=== PATIENT | female | born 1935 | race African-American/Black ===

== ENCOUNTER 2017-07-21 05:04 | Emergency (ER) | payer OTHER ==
--- NOTE | 2017-07-21 05:57 | RAD ---
Procedure: XR ABDOMEN 2 VIEWS SUPINE ERECT Exam Date: 07/21/2017 Ordering Provider: Eleno Beckman Clinical Indication: ams after gtube replacement Comparison: None Findings: Tracheostomy tube and left subclavian pacer noted. Pacer pads present. G-tube noted. Cardiomediastinal silhouette is unremarkable. Right basilar atelectasis and/or infiltrate. No large pleural effusions or pneumothorax. Aortic calcification. Contrast seen within the bowel to the level of the rectum. Nonobstructive bowel gas pattern. There is no definite pneumoperitoneum. There are no suspicious calcifications. There is no acute skeletal abnormality. Impression: 1. Right basilar atelectasis and/or infiltrate. Electronically signed by: Darian Angeles MD 07/21/2017 5:56 AM CDT
--- NOTE | 2017-07-21 05:58 | ED.PDOC ---
History of Present Illness - General Source: EMS notes reviewed, residential records Exam Limitations: clinical condition - History of Present Illness Initial Comments: the patient is an 82-year-old female at the long-term care ventilator facility. EMS was called secondary to a pulseless patient. Apparently the patient had been acting out and had pulled out her G-tube. As they were trying to get him back in she apparently went limp and unresponsive and they were unable to find a pulse. By the time he got an AED in place her pulse had returned. She however did not become responsive. She had previously been able to sit up on the bed and of course remove her G-tube. Upon arrival here in the emergency room she has limp and not moving any of her extremities even to pain. There is no focusing her eyes. She has no significant gag reflex. There is no posturing. There is no evidence of pain. There is no evidence of any attempt to communicate. She is not even trying to breathe on her own. Past medical history obtained from outside records indicates dysphonia and vocal cord dysfunction along with severe pulmonary hypertension COPD and pulmonary fibrosis all of which led to severe hypercapnia with a PaCO2 of 189 at one time. The patient also has a history of hypertension and CHF of course related to pulmonary hypertension, coronary artery disease, pacemaker placement , GERD, glaucoma, asthma, hypercholesterolemia, previous small myocardial infarction, pneumonia, hypernatremia, decubitus ulcer and steroid dependency. additionally according to outside records, the patient has a history of pulling out her G-tube and any other assistive devices. After approximately 30 or 40 minutes the patient has started moving her lips but not purposefully. She is also flexing her upper extremities somewhat at the elbows. Still no movement from the lower extremities. She is still not really withdrawing from pain. Timing/Duration: 1/2 hour Severity: severe Improving Factors: nothing Worsening Factors: nothing <Eleno Beckman - Last Filed: 07/21/17 06:42> <Romy Burger - Last Filed: 07/21/17 10:44> - General Chief Complaint: Unresponsive Stated Complaint: unresponsive Time Seen by Provider: 07/21/17 05:05 - History of Present Illness Allergies/Adverse Reactions: Allergies Codeine Allergy (Verified 07/21/17 05:44) Levofloxacin [From Levaquin] Allergy (Verified 07/21/17 05:44) Sulfanilamide Allergy (Verified 07/21/17 05:44) Review of Systems - Review of Systems Review of Systems: 07/21/17 05:58 the patient is unable to give a review of systems. <Eleno Beckman - Last Filed: 07/21/17 06:42> Past Medical History (General) - Patient Medical History Hx of COPD: Yes Hx Cardiac Disorders: Yes - [place] Hx Congestive Heart Failure: Yes Hx Hypertension: Yes Hx Gastroesophageal Reflux: Yes Surgical History: other - Vaccination History Hx Tetanus, Diphtheria Vaccination: No Hx Pneumococcal Vaccination: Yes - Social History Hx Tobacco Use: No - Activities of Daily Living Alf/Assisted Living (if applicable):: [facility] - Female History Patient is a Female of Child Bearing Age (10 -59 yrs old): No Patient : No <Eleno Beckman - Last Filed: 07/21/17 06:42> Family Medical History - Family History Mother Family History: Unknown Living Status: Unknown <Eleno Beckman - Last Filed: 07/21/17 06:42> Physical Exam - Physical Exam General Appearance: Other - the patient is frail and unresponsive Eye Exam: bilateral other - pupils are minimally reactive bilaterally. She is not tracking anything in her visual camacho. Ears, Nose, Throat: normal ENT inspection - mucous membranes are dry. Neck: other - tracheostomy is in place. Passive range of motion of the neck appears to be grossly within normal limits. I feel no crepitus or deformity or evidence of any trauma. Respiratory: lungs clear, normal breath sounds, other - the patient is not even attempting to breathe on her own Cardiovascular/Chest: normal peripheral pulses, regular rate, rhythm, no edema Peripheral Pulses: radial,right: 2+, radial,left: 2+, dorsalis pedis,right: 2+, dorsalis pedis,left: 2+ Gastrointestinal/Abdominal: soft, other - G-tube is in place Extremity: normal range of motion - passively. See history of present illness, normal inspection, no pedal edema, normal capillary refill Neurologic: other - the patient is unresponsive at this time. She has shown some spontaneous but not purposeful movement. Skin Exam: pallor Comments: Vital Signs - 24 hr 07/21/17 05:18 Temperature 94.2 F L Pulse Rate [ 56 L left] Respiratory 16 Rate Blood Pressure 135/80 [right] O2 Sat by Pulse 100 Oximetry <Eleno Beckman L - Last Filed: 07/21/17 06:42> Progress - Progress Progress: 07/21/17 06:44 additional workup is pending. Patient will be handed over to Dr. Burger for continuation of care. - Results/Orders Results/Orders: 07/21/17 05:05 Telemetry .CONTINUOUS 07/21/17 05:06 Head [CT] Stat UA [URINALYSIS] Stat 07/21/17 05:07 EKG Assessment ONCE Oxygen Delivery Assessment: QSHIFT 07/21/17 05:15 EKG STAT 07/21/17 09:00 Oxygen Daily Laboratory Results - last 24 hr 07/21/17 07/21/17 07/21/17 04:50 04:50 04:50 WBC 9.4 RBC 3.79 L Hgb 11.6 L Hct 36.4 MCV 95.9 MCH 30.6 MCHC 31.9 L RDW 16.2 H Plt Count 186 MPV 7.6 Absolute Neuts (auto) Not Reportable Absolute Lymphs (auto) Not Reportable Absolute Monos (auto) Not Reportable Absolute Eos (auto) Not Reportable Neutrophils % Not Reportable Neutrophils % (Manual) 62.0 Lymphocytes % Not Reportable Lymphocytes % (Manual) 34.0 Monocytes % Not Reportable Monocytes % (Manual) 4.0 Eosinophils % Not Reportable Basophils % Not Reportable Toxic Granulation 1+ Platelet Estimate Normal Anisocytosis 1+ Ovalocytes 1+ PT 13.1 H INR 1.160 PTT (SP) 34.2 D-Dimer, Quantitative 721 H* Sodium 137 Potassium 3.8 Chloride 99 L Carbon Dioxide 27 Anion Gap 14.8 BUN 25 H Creatinine 0.74 BUN/Creatinine Ratio 33.8 H POC Glucose Random Glucose 210 H Serum Osmolality 284.4 Calcium 10.9 H Magnesium 2.2 Total Bilirubin 0.5 AST 50 H ALT 37 Alkaline Phosphatase 76 Creatine Kinase 56 CK-MB (CK-2) 2.9 CK-MB (CK-2) % Not Reportable Troponin I 0.07 H* B-Natriuretic Peptide 1110.0 H* Serum Total Protein 6.5 Albumin 3.2 Globulin 3.3 Albumin/Globulin Ratio 1.0 L 07/21/17 05:08 WBC RBC Hgb Hct MCV MCH MCHC RDW Plt Count MPV Absolute Neuts (auto) Absolute Lymphs (auto) Absolute Monos (auto) Absolute Eos (auto) Neutrophils % Neutrophils % (Manual) Lymphocytes % Lymphocytes % (Manual) Monocytes % Monocytes % (Manual) Eosinophils % Basophils % Toxic Granulation Platelet Estimate Anisocytosis Ovalocytes PT INR PTT (SP) D-Dimer, Quantitative Sodium Potassium Chloride Carbon Dioxide Anion Gap BUN Creatinine BUN/Creatinine Ratio POC Glucose 142 H Random Glucose Serum Osmolality Calcium Magnesium Total Bilirubin AST ALT Alkaline Phosphatase Creatine Kinase CK-MB (CK-2) CK-MB (CK-2) % Troponin I B-Natriuretic Peptide Serum Total Protein Albumin Globulin Albumin/Globulin Ratio EKG shows a ventricularly paced rhythm. Difficult to tell if there are any acute changes due to this and no previous EKG for comparison. It is a normal rate. Chest x-ray showsSignificant pulmonary fibrosis. Again I have no previous x- ray to compare to.formal read shows possible right lower lobe basilar atelectasis versus infiltrate. head CT shows no evidence of hemorrhage or midline shift. No evidence of acute stroke. There are apparently prominent optic nerve sheaths. There is possible left mastoiditis uncertain whether old or new. current ABG shows a PaCO2 of 50 and a PaO2 of 75. This is on 40% FiO2. PH is 7.43. Bicarbonate is 32. <Eleno Beckman L - Last Filed: 07/21/17 06:42> - Progress Progress: 07/21/17 09:19 Patient remains minimally responsive. No purposeful movement. Second Troponin is further elevated @ 0.12. Will transfer to [facility] per family request. - Results/Orders Results/Orders: Laboratory Last Values WBC 9.4 K/mm3 (4.8-10.8) 07/21/17 04:50 RBC 3.79 M/mm3 (4.20-5.40) L 07/21/17 04:50 Hgb 11.6 gm/dL (12.0-16.0) L 07/21/17 04:50 Hct 36.4 % (36.0-47.0) 07/21/17 04:50 MCV 95.9 fl (81.0-99.0) 07/21/17 04:50 MCH 30.6 pg (27.0-31.0) 07/21/17 04:50 MCHC 31.9 g/dL (33.0-37.0) L 07/21/17 04:50 RDW 16.2 % (11.5-14.5) H 07/21/17 04:50 Plt Count 186 K/mm3 (130-400) 07/21/17 04:50 MPV 7.6 fl (7.40-10.4) 07/21/17 04:50 Absolute Neuts (auto) Not Reportable 07/21/17 04:50 Absolute Lymphs (auto) Not Reportable 07/21/17 04:50 Absolute Monos (auto) Not Reportable 07/21/17 04:50 Absolute Eos (auto) Not Reportable 07/21/17 04:50 Neutrophils % Not Reportable 07/21/17 04:50 Neutrophils % (Manual) 62.0 % 07/21/17 04:50 Lymphocytes % Not Reportable 07/21/17 04:50 Lymphocytes % (Manual) 34.0 % 07/21/17 04:50 Monocytes % Not Reportable 07/21/17 04:50 Monocytes % (Manual) 4.0 % 07/21/17 04:50 Eosinophils % Not Reportable 07/21/17 04:50 Basophils % Not Reportable 07/21/17 04:50 Toxic Granulation 1+ 07/21/17 04:50 Platelet Estimate Normal (NORMAL) 07/21/17 04:50 Anisocytosis 1+ 07/21/17 04:50 Ovalocytes 1+ 07/21/17 04:50 PT 13.1 SECONDS (9.4-12.5) H 07/21/17 04:50 INR 1.160 07/21/17 04:50 PTT (SP) 34.2 SECONDS (25.1-36.5) 07/21/17 04:50 D-Dimer, Quantitative 721 ng/mL (0-230) H* 07/21/17 04:50 Sodium 137 mmol/L (135-145) 07/21/17 04:50 Potassium 3.8 mmol/L (3.6-5.0) 07/21/17 04:50 Chloride 99 mmol/L (101-111) L 07/21/17 04:50 Carbon Dioxide 27 mmol/L (21-31) 07/21/17 04:50 Anion Gap 14.8 (12-18) 07/21/17 04:50 BUN 25 mg/dL (7-18) H 07/21/17 04:50 Creatinine 0.74 mg/dL (0.6-1.3) 07/21/17 04:50 BUN/Creatinine Ratio 33.8 (10-20) H 07/21/17 04:50 POC Glucose 142 mg/dL (70-105) H 07/21/17 05:08 Random Glucose 210 mg/dL (70-105) H 07/21/17 04:50 Serum Osmolality 284.4 mOsm/L (275-295) 07/21/17 04:50 Calcium 10.9 mg/dL (8.4-10.2) H 07/21/17 04:50 Magnesium 2.2 mg/dL (1.8-2.5) 07/21/17 04:50 Total Bilirubin 0.5 mg/dL (0.2-1.0) 07/21/17 04:50 AST 50 IU/L (10-42) H 07/21/17 04:50 ALT 37 IU/L (10-60) 07/21/17 04:50 Alkaline Phosphatase 76 IU/L (42-121) 07/21/17 04:50 Creatine Kinase 79 IU/L (26-140) 07/21/17 08:22 CK-MB (CK-2) 4.7 ng/mL (0.0-4.4) H* D 07/21/17 08:22 CK-MB (CK-2) % Not Reportable 07/21/17 08:22 Troponin I 0.12 ng/mL (0.01-0.05) H* 07/21/17 08:22 B-Natriuretic Peptide 1110.0 pg/ml (0-100) H* 07/21/17 04:50 Serum Total Protein 6.5 gm/dL (6.4-8.2) 07/21/17 04:50 Albumin 3.2 g/dl (3.2-5.5) 07/21/17 04:50 Globulin 3.3 gm/dL (2.3-3.5) 07/21/17 04:50 Albumin/Globulin Ratio 1.0 (1.1-1.9) L 07/21/17 04:50 Urine Color Yellow (Yellow) 07/21/17 07:57 Urine Appearance Cloudy (Clear) 07/21/17 07:57 Urine pH 7.0 (4.5-7.8) 07/21/17 07:57 Ur Specific [place] 1.025 (1.005-1.030) 07/21/17 07:57 Urine Protein >=300 mg/dL H 07/21/17 07:57 Urine Glucose (UA) Negative mg/dL (Negative) 07/21/17 07:57 Urine Ketones Negative mg/dL (NEGATIVE) 07/21/17 07:57 Urine Blood Small (Negative) H 07/21/17 07:57 Urine Nitrite Positive H 07/21/17 07:57 Urine Bilirubin Negative (NEGATIVE) 07/21/17 07:57 Urine Urobilinogen 1.0 mg/dL (0.2-1.0) 07/21/17 07:57 Ur Leukocyte Esterase Negative (Negative) 07/21/17 07:57 Urine RBC 5-10 /hpf H 07/21/17 07:57 Urine WBC 3-5 /hpf H 07/21/17 07:57 Ur Epithelial Cells 0 /hpf 07/21/17 07:57 Urine Bacteria 2+ H 07/21/17 07:57 <Romy Burger - Last Filed: 07/21/17 10:44> Departure <Eleno Bekcman - Last Filed: 07/21/17 06:42> - Departure Time of Disposition: 10:44 <Romy Burger - Last Filed: 07/21/17 10:44> - Departure Clinical Impression: Elevated troponin, Ventilator dependence Altered mental status Qualifiers: Altered mental status type: unspecified Qualified Code(s): R41.82 - Altered mental status, unspecified Urinary tract infection Qualifiers: Urinary tract infection type: site unspecified Hematuria presence: without hematuria Qualified Code(s): N39.0 - Urinary tract infection, site not specified Disposition: Transfer to Hospital Condition: Serious Transfer to Outside Facility - Transfer Information Accepting Provider:: Dr. Navarro Accepting Facility: [facility] Reason for Transfer: ICU <Romy Burger - Last Filed: 07/21/17 10:44>
--- NOTE | 2017-07-21 06:13 | CT ---
Procedure: CT HEAD WITHOUT IV CONTRAST Exam Date: 07/21/2017 Ordering Provider: Eleno Beckman Clinical Indication: ams acute onset Comparison: None Technique: Using a helical scanner, sequential axial imaging of the brain was obtained without the administration of intravenous contrast. The exam was obtained from the skull base to vertex. This exam was performed according to our departmental dose optimization program which includes use of automated exposure control, adjustment of the mA and/or kV according to patient size and/or use of iterative reconstruction technique. Findings: Ventricular size and configuration are normal for the patient's age. There is no midline shift or hydrocephalus. There is no acute intracranial hemorrhage or mass effect. There is no acute infarct. Hypodensities in the periventricular and subcortical white matter of both cerebral hemispheres are nonspecific but likely related to chronic ischemic small vessel disease. The calvarium is intact. There is no fracture. There is no lytic or sclerotic lesion. The visualized paranasal sinuses are unremarkable. Complete opacification of the left mastoid air cells. Mastoid air cells on the right are unremarkable. Vascular calcifications. Optic nerve sheaths are prominent bilaterally. This is nonspecific but can sometimes be seen with papilledema and/or malignant hypertension. IMPRESSION: 1.No acute intracranial abnormality demonstrated. 2.Optic nerve sheaths are prominent bilaterally. This is nonspecific but can sometimes be seen with papilledema and/or malignant hypertension. 3.Complete opacification of the left mastoid air cells, question mastoiditis. Electronically signed by: Darian Angeles MD 07/21/2017 6:11 AM CDT
[2017-07-21] MEDS ORDERED: ACETAMINOPHEN SUPPOSITORY 650 MG PR ONE ×2 (15:36)
[2017-07-21 15:56] VITALS: BP 100/58; TEMP 101.6; O2SAT 98
== END 2017-07-21 15:40 | disposition short-term general hospital (02) ==
LOC: ER 05:04
DX: R41.82 Altered mental status, unspecified (principal); N39.0 Urinary tract infection, site not specified; R79.89 Other specified abnormal findings of blood chemistry; Z99.11 Dependence on respirator [ventilator] status; Z93.1 Gastrostomy status; I25.2 Old myocardial infarction; I11.0 Hypertensive heart disease with heart failure; I50.9 Heart failure, unspecified; K21.9 Gastro-esophageal reflux disease without esophagitis; Z88.6 Allergy status to analgesic agent; Z88.2 Allergy status to sulfonamides; Z95.0 Presence of cardiac pacemaker

== ENCOUNTER 2017-10-15 20:22 | Emergency (ER) | payer OTHER ==
[2017-10-15 20:50] VITALS: O2SAT 99
--- NOTE | 2017-10-15 21:17 | RAD ---
EXAM DESCRIPTION: Chest,1 View CLINICAL HISTORY: 82 years Female vent pt COMPARISON: 09/27/2017 FINDINGS: Cardiac enlargement. Widened mediastinum which appears to be on the basis of ectatic vascular structures. Pacemaker in place. Tracheostomy tube is noted. Blunting of the costophrenic angles suggesting small effusions. Atelectasis in the right lung base. Prominent interstitial markings which appears similar to the previous study and is likely reflective of senescent lung. IMPRESSION: Prominence of the interstitial markings which is likely related to senescent lung. Possibility of developing edema is not excluded Right basilar atelectasis Small bilateral pleural effusions may be present Tracheostomy tube in place Electronically signed by: Cherry Alegria 10/15/2017 9:16 PM [employer]PA[employer]
--- NOTE | 2017-10-15 21:53 | ED.PDOC ---
History of Present Illness - General Chief Complaint: Respiratory Problem Stated Complaint: unresponsive at retirement Time Seen by Provider: 10/15/17 21:42 Source: RN notes reviewed - History of Present Illness Initial Comments: THIS IS A PATIENT FROM [facility]. EVIDENTLY SHE WAS FOUND UNRESPONSIVE AND DECIDED TO TRANSFER THE PATIENT TO THE ER. MEDICS SAY THAT WHENEVER THEY PICKED THE PATIENT UP SHE WAS RESPONSIVE. SHE HAS A HX OF COPD, HTN, CHF, CAD, PACEMAKER GERD. SHE HAS A BASELINE PCO2 OF 90 AND HENCE SHE IS VENT DEPENDENT. UPON ARRIVAL TO THE ED THE VITALS HAVE BEEN NORMAL AND SHE HAS BEEN ALERT. Timing/Duration: unsure Severity: mild Allergies/Adverse Reactions: Allergies Codeine Allergy (Verified 07/21/17 05:44) Levofloxacin [From Levaquin] Allergy (Verified 07/21/17 05:44) Sulfanilamide Allergy (Verified 07/21/17 05:44) Review of Systems - Review of Systems Unable to Obtain Due To: intubated Past Medical History (General) - Patient Medical History Hx of COPD: Yes Hx Cardiac Disorders: Yes - [place] Hx Congestive Heart Failure: Yes Hx Pacemaker: Yes Hx Hypertension: Yes Hx Gastroesophageal Reflux: Yes Hx MRSA: Yes Surgical History: pacemaker, Hysterectomy - Vaccination History Hx Tetanus, Diphtheria Vaccination: No Hx Influenza Vaccination: - unk Hx Pneumococcal Vaccination: - unk - Social History Hx Tobacco Use: No - Activities of Daily Living Correction/Assisted Living (if applicable):: [facility] - Female History Patient is a Female of Child Bearing Age (10 -59 yrs old): No Patient : No Family Medical History - Family History Mother Family History: Unknown Living Status: Unknown Physical Exam - Physical Exam General Appearance: Alert Eye Exam: bilateral normal Ears, Nose, Throat: hearing grossly normal, other - THE PATIENT IS INTUBATED Neck: non-tender Respiratory: chest non-tender, lungs clear Cardiovascular/Chest: normal peripheral pulses, regular rate, rhythm, no edema, no gallop, no JVD Peripheral Pulses: radial,right: 2+ Gastrointestinal/Abdominal: normal bowel sounds Rectal Exam: deferred Back Exam: normal inspection Extremity: normal range of motion Skin Exam: normal color Progress - Results/Orders Results/Orders: THE CXR HAS SMALL EFFUSIONS BILATERALLY. WHILE IN TE ED HER VITALS HAVE BEEN NORMAL AND SHE HAS BEEN ALERT ALL THE TIME. Departure - Departure Clinical Impression: End stage COPD Time of Disposition: 21:57 Disposition: Discharge to Home or Self Care Condition: Good Departure Forms: ED Discharge - Pt. Copy, Patient Portal Self Enrollment Instructions: DI for Altered Mental Status
[2017-10-15 22:25] VITALS: BP 106/52; TEMP 95.6
== END 2017-10-15 22:24 | disposition home or self-care (01) ==
LOC: ER 20:22
DX: J44.9 Chronic obstructive pulmonary disease, unspecified (principal); Z99.11 Dependence on respirator [ventilator] status; I25.2 Old myocardial infarction; I11.0 Hypertensive heart disease with heart failure; I50.9 Heart failure, unspecified; Z95.0 Presence of cardiac pacemaker

== ENCOUNTER → 2018-01-09 | Outpatient (CLI) | payer OTHER | LOC: GOCC 11:04 | PROVIDERS: ATTEND Internal Medicine | DX: S81.802A Unspecified open wound, left lower leg, initial encounter (principal) ==

== ENCOUNTER 2018-02-10 02:38 | Emergency (ER) | payer OTHER ==
--- NOTE | 2018-02-10 02:52 | ED.PDOC ---
History of Present Illness - General Chief Complaint: Respiratory Problem Time Seen by Provider: 02/10/18 02:49 Source: RN notes reviewed, EMS notes reviewed Exam Limitations: other - CHRONIC VENT DEPENDANT Additional Information: 83 YEAR OLD CHRONIC VENT DEPENDANT [facility] FOR EVALUATION OF FEVER AND INCREASING RESPIRATORY DISTRESS SHE HAS HISTORY OF COPD CHRONIC VENTILATORY INSUFFICIENCY FEVER NOTED TODAY [facility] CATH URINE IS VERY CLOUDY OXYGEN SAT ABOVE 92 % - History of Present Illness Timing/Duration: unsure Severity: mild Improving Factors: nothing Worsening Factors: nothing Allergies/Adverse Reactions: Allergies Codeine Allergy (Verified 07/21/17 05:44) Levofloxacin [From Levaquin] Allergy (Verified 07/21/17 05:44) Sulfanilamide Allergy (Verified 07/21/17 05:44) Home Medications: Ambulatory Orders Acetaminophen [Tylenol] 325 mg PO 02/10/18 Ascorbic Acid 02/10/18 Balsam [place] Oil [Venelex] 1 applic TOP BID 02/10/18 Brimonidine 0.2% Ophth [Alphagan P] 1 drop BOTH_EYES 02/10/18 Chlorhexidine Gluconate (Mouth [Chlorhexidine Gluconate] 02/10/18 Cranberry-Vitamin C-Inulin [Uti-Stat] 1 liq PO 02/10/18 Docusate Sodium 100 mg PO 02/10/18 Doxycycline Hyclate [Vibramycin] 100 mg PO 02/10/18 Sarah-Tussin Dm 100-10 mg/5Ml 02/10/18 Ipratropium/Albuterol 02/10/18 Lorazepam [Ativan] 02/10/18 Morphine Sulfate 7.5 mg PO 02/10/18 Pantoprazole Suspension [Protonix Suspension] 02/10/18 Prednisone 02/10/18 Quetiapine Fumarate 200 mg 02/10/18 Zinc Sulfate 220 mg PO 02/10/18 Review of Systems - Review of Systems Unable to Obtain Due To: condition, clinical condition Past Medical History (General) - Patient Medical History Hx of COPD: Yes Hx Cardiac Disorders: Yes - [place] Hx Congestive Heart Failure: Yes Hx Pacemaker: Yes Hx Hypertension: Yes Hx Gastroesophageal Reflux: Yes Hx MRSA: Yes - Vaccination History Hx Tetanus, Diphtheria Vaccination: No Hx Influenza Vaccination: - unk Hx Pneumococcal Vaccination: - unk - Social History Hx Tobacco Use: No - Female History Patient : No Family Medical History - Family History Mother Family History: Unknown Living Status: Unknown Physical Exam - Physical Exam General Appearance: Lethargic Eye Exam: bilateral normal Ears, Nose, Throat: normal ENT inspection, normal pharynx Neck: non-tender, full range of motion, supple Respiratory: chest non-tender, lungs clear, normal breath sounds, no accessory muscle use Cardiovascular/Chest: normal peripheral pulses, regular rate, rhythm, no edema, no gallop, no JVD Peripheral Pulses: radial,right: 2+, radial,left: 2+, femoral,right: 2+, femoral ,left: 2+, popliteal,right: 2+, popliteal,left: 2+ Back Exam: normal inspection, no CVA tenderness, no vertebral tenderness Extremity: non-tender, normal inspection Neurologic: other - UNABLE TO EXAM DUE TO MENTAL SATUS Departure - Departure Clinical Impression: Pneumonia, COPD (chronic obstructive pulmonary disease), Urinary tract infection, Anemia Disposition: Transfer to Hospital Departure Forms: ED Discharge - Pt. Copy, Patient Portal Self Enrollment Home Medications: Ambulatory Orders Acetaminophen [Tylenol] 325 mg PO 02/10/18 Ascorbic Acid 02/10/18 Balsam [place] Oil [Venelex] 1 applic TOP BID 02/10/18 Brimonidine 0.2% Ophth [Alphagan P] 1 drop BOTH_EYES 02/10/18 Chlorhexidine Gluconate (Mouth [Chlorhexidine Gluconate] 02/10/18 Cranberry-Vitamin C-Inulin [Uti-Stat] 1 liq PO 02/10/18 Docusate Sodium 100 mg PO 02/10/18 Doxycycline Hyclate [Vibramycin] 100 mg PO 02/10/18 Sarah-Tussin Dm 100-10 mg/5Ml 02/10/18 Ipratropium/Albuterol 02/10/18 Lorazepam [Ativan] 02/10/18 Morphine Sulfate 7.5 mg PO 02/10/18 Pantoprazole Suspension [Protonix Suspension] 02/10/18 Prednisone 02/10/18 Quetiapine Fumarate 200 mg 02/10/18 Zinc Sulfate 220 mg PO 02/10/18 Transfer to Outside Facility - Transfer Information Accepting Provider:: DR YE Accepting Facility: [facility] Reason for Transfer: ICU
[2018-02-10] MEDS ORDERED: ACETAMINOPHEN LIQUID 160 MG/5 ML UD PO ONE (03:30)
--- NOTE | 2018-02-10 04:02 | RAD ---
EXAM DESCRIPTION: Chest,1 View CLINICAL HISTORY: R/O PNEUMONIA COMPARISON: 10/15/2027 FINDINGS: Single frontal view of the chest. Tracheostomy. Cardiomegaly. Left-sided pacemaker. Left upper lobe consolidation. No pneumothorax. No acute osseous abnormalities. Upper abdominal soft tissues are unremarkable. IMPRESSION: 1. Interval development of left upper lung airspace opacity concerning for pneumonia. Likely left pleural effusion. Electronically signed by: Hank Obrien 02/10/2018 4:01 AM CDT
[2018-02-10] MEDS ORDERED: CEFEPIME 1 GM in SODIUM CHLORIDE 0.9% 50ML 50 ML IVPB ONE (05:15)
[2018-02-10] MEDS ORDERED: CEFEPIME 2 GM VIAL IVPB ONE (05:20)
[2018-02-10] MEDS ORDERED: SODIUM CHLORIDE 0.9% 50ML 50 ML ONE (05:20)
[2018-02-10 06:17] VITALS: BP 111/61; TEMP 101.2; O2SAT 100
== END 2018-02-10 06:10 | disposition short-term general hospital (02) ==
LOC: ER 02:38
DX: J18.9 Pneumonia, unspecified organism (principal); J44.9 Chronic obstructive pulmonary disease, unspecified; N39.0 Urinary tract infection, site not specified; D64.9 Anemia, unspecified; I25.2 Old myocardial infarction; I11.0 Hypertensive heart disease with heart failure; I50.9 Heart failure, unspecified; K21.9 Gastro-esophageal reflux disease without esophagitis; Z95.0 Presence of cardiac pacemaker; Z99.11 Dependence on respirator [ventilator] status
CPT/HCPCS: 36415; 71045; 80053; 81001; 85025; 87040; 87086; 94002; A4216; J0692

== ENCOUNTER 2018-02-21 08:30 | Emergency (ER) | payer OTHER ==
--- NOTE | 2018-02-21 08:47 | ED.PDOC ---
History of Present Illness - General Chief Complaint: General Stated Complaint: swelling left upper extremity Time Seen by Provider: 02/21/18 08:46 Source: EMS Exam Limitations: clinical condition, physical impairment, other - non verbal - History of Present Illness Initial Comments: Andie Kay 83 y/o female brought by EMS with left upper extremity swelling for 3-4 days;patient on chronic ventilatory support ,non verbal,awake.recent hospitalization at [facility] for sepsi.pna. Timing/Duration: other - see hpi Severity: moderate Improving Factors: nothing Worsening Factors: nothing Associated Symptoms: other - see hpi Allergies/Adverse Reactions: Allergies Codeine Allergy (Verified 07/21/17 05:44) Levofloxacin [From Levaquin] Allergy (Verified 07/21/17 05:44) Sulfanilamide Allergy (Verified 07/21/17 05:44) Home Medications: Ambulatory Orders Acetaminophen [Tylenol] 650 mg PEG Q4H PRN 02/10/18 Brimonidine 0.2% Ophth [Alphagan P] 1 drop BOTH_EYES BID 02/10/18 RX: Docusate Sodium 100 mg PEG DAILY PRN 02/10/18 RX: Morphine Sulfate 7.5 mg PEG Q6H PRN 02/10/18 RX: Zinc Sulfate 220 mg PEG DAILY 02/10/18 Ascorbic Acid [Vitamin C] 500 mg PEG DAILY 02/21/18 Atropine Sulfate (Ophthalmic) [Atropine Sulfate] 2 - 4 drop SL Q4H PRN 02/21/18 Cholecalciferol [Vitamin D3] 400 unit PEG DAILY 02/21/18 Dextromethorphan-Guaifenesin [Sarah-[place]villessin Dm] 1 syp PEG BID 02/21/18 Ipratropium [place] Nebs [Atrovent NEBS] 0.5 mg INH Q6H 02/21/18 Linezolid [Zyvox] 600 mg PEG BID 02/21/18 Lorazepam [Ativan] 1 mg PEG BID PRN 02/21/18 Multiple Vitamin [Multivitamins] 1 cap PEG DAILY 02/21/18 Pantoprazole Suspension [Protonix] 40 mg PEG DAILY 02/21/18 QUEtiapine FUMARATE [SEROquel] 100 mg PEG BID 02/21/18 RX: Prednisone 10 mg PEG DAILY 02/21/18 Review of Systems - Review of Systems Unable to Obtain Due To: condition, clinical condition, other - non verbal ;on tracheostomy tube-w/chronic ventilatory support Past Medical History (General) - Patient Medical History Hx of COPD: Yes Hx Cardiac Disorders: Yes - [place] Hx Congestive Heart Failure: Yes Hx Pacemaker: Yes Hx Hypertension: Yes Hx Gastroesophageal Reflux: Yes Hx MRSA: Yes - Vaccination History Hx Tetanus, Diphtheria Vaccination: No Hx Influenza Vaccination: - unk Hx Pneumococcal Vaccination: - unk - Social History Hx Tobacco Use: No - Activities of Daily Living Snf/Assisted Living (if applicable):: [facility] - Female History Patient : No Family Medical History - Family History Mother Family History: Unknown Living Status: Unknown Physical Exam - Physical Exam General Appearance: Alert, Comfortable, No apparent distress Eye Exam: bilateral normal Ears, Nose, Throat: normal ENT inspection Neck: supple, normal inspection Respiratory: lungs clear, normal breath sounds, no respiratory distress Cardiovascular/Chest: normal peripheral pulses, regular rate, rhythm, no murmur Peripheral Pulses: radial,right: 1+, radial,left: 1+ Gastrointestinal/Abdominal: non tender, soft, no organomegaly, other - peg tube patent Back Exam: no CVA tenderness, no vertebral tenderness Extremity: swelling - left upper extremity, other - contacture deformity , muscle disuse atrophy mostly LE Neurologic: alert, motor weakness Skin Exam: normal color, warm/dry Progress - Progress Progress: 02/21/18 08:59 Vital Signs - 8 hr 02/21/18 08:47 Temperature 97.3 F L Pulse Rate [ 72 Right Ulnar] Respiratory 18 Rate Blood Pressure 132/64 [Right Arm] O2 Sat by Pulse 100 Oximetry - Results/Orders Results/Orders: Laboratory Tests 02/21/18 02/21/18 09:23 09:23 WBC 9.1 RBC 2.71 L Hgb 7.8 L* Hct 24.5 L MCV 90.2 MCH 28.7 MCHC 31.9 L RDW 17.3 H Plt Count 275 MPV 6.9 L Absolute Neuts (auto) 7.60 H Absolute Lymphs (auto) 0.90 L Absolute Monos (auto) 0.40 Absolute Eos (auto) 0.20 Absolute Basos (auto) 0.10 Neutrophils % 83.6 H Lymphocytes % 9.4 L Monocytes % 4.5 Eosinophils % 1.8 Basophils % 0.7 PT 13.0 H INR 1.120 PTT (SP) 30.5 Sodium 138 Potassium 4.4 Chloride 103 Carbon Dioxide 28 Anion Gap 11.4 L BUN 20 H Creatinine 0.42 L BUN/Creatinine Ratio 47.6 H Random Glucose 108 H Serum Osmolality 278.8 Lactic Acid 2.1 Calcium 10.0 Magnesium 1.8 Total Bilirubin 0.6 Direct Bilirubin 0.1 Indirect Bilirubin 0.5 AST 20 ALT 17 Alkaline Phosphatase 48 Creatine Kinase 17 L CK-MB (CK-2) 1.1 CK-MB (CK-2) % Not Reportable Troponin I 0.03 B-Natriuretic Peptide 389.0 H* Serum Total Protein 6.2 L Albumin 2.7 L Hgb-7.9 on discharge at [facility]-steady - EKG/XRAY/CT XRAY: chest - diminishing left upper lobe infiltrates Xray Comments: [id number] DVT left subclavian veins Departure - Departure Clinical Impression: Swelling of left upper extremity, Ventilator dependent, Anemia of chronic illness Time of Disposition: 10:49 Disposition: Discharge to SNF Condition: Fair Departure Forms: ED Discharge - Pt. Copy, Patient Portal Self Enrollment Home Medications: Ambulatory Orders Acetaminophen [Tylenol] 650 mg PEG Q4H PRN 02/10/18 Brimonidine 0.2% Ophth [Alphagan P] 1 drop BOTH_EYES BID 02/10/18 RX: Docusate Sodium 100 mg PEG DAILY PRN 02/10/18 RX: Morphine Sulfate 7.5 mg PEG Q6H PRN 02/10/18 RX: Zinc Sulfate 220 mg PEG DAILY 02/10/18 Ascorbic Acid [Vitamin C] 500 mg PEG DAILY 02/21/18 Atropine Sulfate (Ophthalmic) [Atropine Sulfate] 2 - 4 drop SL Q4H PRN 02/21/18 Cholecalciferol [Vitamin D3] 400 unit PEG DAILY 02/21/18 Dextromethorphan-Guaifenesin [Sarah-Tussin Dm] 1 syp PEG BID 02/21/18 Ipratropium [place] Nebs [Atrovent NEBS] 0.5 mg INH Q6H 02/21/18 Linezolid [Zyvox] 600 mg PEG BID 02/21/18 Lorazepam [Ativan] 1 mg PEG BID PRN 02/21/18 Multiple Vitamin [Multivitamins] 1 cap PEG DAILY 02/21/18 Pantoprazole Suspension [Protonix] 40 mg PEG DAILY 02/21/18 QUEtiapine FUMARATE [SEROquel] 100 mg PEG BID 02/21/18 RX: Prednisone 10 mg PEG DAILY 02/21/18 Additional Instructions: Follow up with primary MD;May need to repeat ultrasound studies in one week if needed;continue with MS meds.
[2018-02-21 08:53] VITALS: TEMP 97.3
--- NOTE | 2018-02-21 09:25 | RAD ---
EXAM DESCRIPTION: Chest,1 View CLINICAL HISTORY: chronic vent COMPARISON: None. TECHNIQUE: AP portable taken at 904 hours, upright position. Technique Limited due to physical condition of patient with head flexed over mediastinum and left lung. FINDINGS: Bilateral lung volumes decreased. Perihilar peribronchial wall thickening. Question of effusion in the right base. Most of the left lung is obscured by heart shadow, medical equipment, and head flexion. Infiltrate in the left upper lobe has decreased since the prior study. Pacemaker and pacing wire stable in position. IMPRESSION: Limited study with bilateral perihilar peribronchial wall cuffing. Question of effusion and/or atelectasis atelectasis right base. Decreased infiltrate in the left upper lobe since the prior study. Electronically signed by: Brad Rees MD 02/21/2018 9:23 AM CDT
[2018-02-21] MEDS ORDERED: ONDANSETRON INJ 4 MG/2 ML VIAL ONE (10:04)
[2018-02-21] MEDS ORDERED: ONDANSETRON INJ 4 MG/2 ML VIAL IV ONE (10:05)
--- NOTE | 2018-02-21 10:36 | US ---
Venous Doppler sonogram left upper extremity CLINICAL HISTORY: Left upper extremity pain FINDINGS: Unable to visualize left internal jugular vein secondary to tracheostomy and inability of patient to turn the head for appropriate evaluation Normal color Doppler venous flow demonstrated in the left subclavian, axillary, and brachial veins. Normal compressibility. Normal respiratory augmentation of flow. Normal flow in the basilic vein. Cephalic vein not demonstrated Normal flow in the deep veins of the forearm, radial and ulnar veins demonstrated Diffuse subcutaneous soft tissue edema and mild swelling IMPRESSION: No evidence of deep vein thrombosis left subclavian vein through the forearm veins Electronically signed by: Jerad Chavira MD 02/21/2018 10:35 AM CDT
[2018-02-21 11:03] VITALS: O2SAT 97
[2018-02-21 11:20] VITALS: BP 131/66
== END 2018-02-21 11:20 ==
LOC: ER 08:30
DX: R60.0 Localized edema (principal); D63.8 Anemia in other chronic diseases classified elsewhere; J44.9 Chronic obstructive pulmonary disease, unspecified; I25.2 Old myocardial infarction; I11.0 Hypertensive heart disease with heart failure; I50.9 Heart failure, unspecified; K21.9 Gastro-esophageal reflux disease without esophagitis; Z99.11 Dependence on respirator [ventilator] status; Z79.899 Other long term (current) drug therapy
CPT/HCPCS: 36415; 71045; 80048; 80076; 82550; 82553; 83605; 83880; 84484; 85025; 85610; 85730; 93971; 94002; J2405

== ENCOUNTER 2018-08-13 14:45 | Emergency (ER) | payer OTHER ==
--- NOTE | 2018-08-13 15:06 | RAD ---
EXAM DESCRIPTION: Chest,1 View CLINICAL HISTORY: 83 years Female, cardiac arrest COMPARISON: None. TECHNIQUE: AP portable chest. FINDINGS: Heart size is large with increased central pulmonary vascularity. Tracheostomy tube is present with tip above the clavicles. The tip is approximately 3 cm above the jonathan. Cardiac pacer is in place with unchanged configuration. Right PIC catheter is been removed since previous study. Improved aeration of the lungs is now noted. Discoid atelectasis in the right lung base. Moderate pleural effusion on the left with partial volume loss in left lower lobe. Patchy infiltrate in the left apex. Bones are unremarkable. IMPRESSION: Large heart with prominent central pulmonary vascularity. Small to moderate bilateral pleural effusions. Partial volume loss or patchy infiltrates in the peripheral right mid lung, left upper lobe and left lower lobe. Electronically signed by: Juanjose Casanova MD 08/13/2018 3:[address] [facility]
[2018-08-13] MEDS ORDERED: CALCIUM GLUCONATE INJ 1 GM/10 ML VIAL IV ONE (15:09)
[2018-08-13] MEDS ORDERED: ASPIRIN (ENTERIC COATED) 325 MG TAB PO ONE (15:09)
[2018-08-13 15:16] VITALS: TEMP 96.4
[2018-08-13] MEDS ORDERED: SODIUM CHLORIDE 0.9% 1000ML 1,000 ML IVS ONE ×2 (15:35→16:49)
[2018-08-13] MEDS ORDERED: INSULIN, REG.(HUMAN) 100 U/ML VIAL IV ONE (15:36)
[2018-08-13] MEDS ORDERED: ASPIRIN TABLET 325 MG TAB PO ONE (15:42)
--- NOTE | 2018-08-13 16:10 | ED.PDOC ---
History of Present Illness - General Chief Complaint: Cardiac Respiratory Arrest Stated Complaint: CPR Time Seen by Provider: 08/13/18 14:49 Source: EMS notes reviewed, [facility] records Exam Limitations: clinical condition, physical impairment - History of Present Illness Initial Comments: Patient is an 83 yo F on chronic ventilator dependence who presents from [facility] after staff thought that she had become unresponsive, turned blue, and had no pulses. An AED was used and two shocks were delivered. EMS reports that when they got there, she was in NSR but faint or no pulses. She was given epinphrine IV x two and pulses returned strong. She presents to the E.R. unresponsive but in NSR with good pulses in all extremities. Her POA was contacted and voiced the desire for us to perform CPR, give medications for resuscitation/ROSC, and go through ACLS protocol to keep the patient alive. Timing/Duration: unsure Severity: severe Improving Factors: nothing Worsening Factors: nothing Associated Symptoms: other Allergies/Adverse Reactions: Allergies Codeine Allergy (Verified 07/21/17 05:44) Levofloxacin [From Levaquin] Allergy (Verified 07/21/17 05:44) Sulfanilamide Allergy (Verified 07/21/17 05:44) Home Medications: Ambulatory Orders Acetaminophen [Tylenol] 650 mg PEG Q4H PRN 02/10/18 Brimonidine 0.2% Ophth [Alphagan P] 1 drop BOTH_EYES BID 02/10/18 Docusate Sodium 100 mg PEG DAILY PRN 02/10/18 Morphine Sulfate 7.5 mg PEG Q6H PRN 02/10/18 Zinc Sulfate 220 mg PEG DAILY 02/10/18 Ascorbic Acid [Vitamin C] 500 mg PEG DAILY 02/21/18 Atropine Sulfate (Ophthalmic) [Atropine Sulfate] 2 - 4 drop SL Q4H PRN 02/21/18 Cholecalciferol [Vitamin D3] 400 unit PEG DAILY 02/21/18 Dextromethorphan-Guaifenesin [Sarah-Tussin Dm] 1 syp PEG BID 02/21/18 Ipratropium [place] Nebs [Atrovent NEBS] 0.5 mg INH Q6H 02/21/18 Linezolid [Zyvox] 600 mg PEG BID 02/21/18 Lorazepam [Ativan] 1 mg PEG BID PRN 02/21/18 Multiple Vitamin [Multivitamins] 1 cap PEG DAILY 02/21/18 Pantoprazole Suspension [Protonix] 40 mg PEG DAILY 02/21/18 Prednisone 10 mg PEG DAILY 02/21/18 QUEtiapine FUMARATE [SEROquel] 100 mg PEG BID 02/21/18 Review of Systems - Review of Systems Unable to Obtain Due To: intubated Past Medical History (General) - Patient Medical History Hx of COPD: Yes Hx Cardiac Disorders: Yes - [place] Hx Congestive Heart Failure: Yes Hx Pacemaker: Yes Hx Hypertension: Yes Hx Gastroesophageal Reflux: Yes Hx MRSA: Yes - Vaccination History Hx Tetanus, Diphtheria Vaccination: No Hx Influenza Vaccination: - unk Hx Pneumococcal Vaccination: - unk - Social History Hx Tobacco Use: No - Activities of Daily Living Senior Care/Assisted Living (if applicable):: [facility] - Female History Patient : No Family Medical History - Family History Mother Family History: Unknown Living Status: Unknown Physical Exam - Physical Exam General Appearance: Other - intubated and does not respond to voice. Does respond to tactile stimulation Eye Exam: bilateral normal Ears, Nose, Throat: other - trachea tube in place and patent Neck: other - unable to test Respiratory: other - crackles in bilateral upper lobes. distant breath sounds in lower lobes Cardiovascular/Chest: regular rate, rhythm Gastrointestinal/Abdominal: normal bowel sounds, non tender, soft Extremity: no pedal edema Neurologic: other - unresponsive, pupillar and corneal reflexes intact Skin Exam: normal color Lymphatic: no adenopathy Progress - Progress Progress: 08/13/18 16:46 Laboratory Tests 08/13/18 08/13/18 08/13/18 14:46 14:46 14:46 WBC 13.9 H RBC 3.19 L Hgb 9.3 L Hct 32.8 L MCV 102.9 H MCH 29.1 MCHC 28.3 L RDW 20.2 H Plt Count 282 MPV 8.0 Absolute Neuts (auto) Absolute Lymphs (auto) Absolute Monos (auto) Absolute Eos (auto) Absolute Basos (auto) Neutrophils % Neutrophils % (Manual) 57.0 Lymphocytes % Lymphocytes % (Manual) 30.0 Monocytes % Monocytes % (Manual) 10.0 Eosinophils % Basophils % Band Neutrophils 2.0 Eosinophils 1.0 Nucleated RBCs 3.0 Platelet Estimate Normal Normal RBC Morphology 1+aniso PT 10.8 INR 1.08 PTT (SP) 22.8 pCO2 pO2 HCO3 ABG pH ABG O2 Saturation ABG Base Excess ABG Deoxyhemoglobin Oxyhemoglobin % Carboxyhemoglobin % Methemoglobin % Sat Calc Total Hemoglobin Sodium 144 Potassium 6.0 H Chloride 106 Carbon Dioxide 24 Anion Gap 20.0 H BUN 49 H Creatinine 0.92 BUN/Creatinine Ratio 53.3 H Random Glucose 381 H Serum Osmolality 315.5 H Lactic Acid Calcium 11.5 H Total Bilirubin 0.5 AST 101 H ALT 87 H Alkaline Phosphatase 72 Creatine Kinase 45 CK-MB (CK-2) 1.4 CK-MB (CK-2) % Not Reportable Troponin I 0.05 B-Natriuretic Peptide 294.0 H* Serum Total Protein 7.2 Albumin 3.6 Globulin 3.6 H Albumin/Globulin Ratio 1.0 L 08/13/18 08/13/18 15:03 15:15 WBC RBC Hgb Hct MCV MCH MCHC RDW Plt Count MPV Absolute Neuts (auto) Absolute Lymphs (auto) Absolute Monos (auto) Absolute Eos (auto) Absolute Basos (auto) Neutrophils % Neutrophils % (Manual) Lymphocytes % Lymphocytes % (Manual) Monocytes % Monocytes % (Manual) Eosinophils % Basophils % Band Neutrophils Eosinophils Nucleated RBCs Platelet Estimate Normal RBC Morphology PT INR PTT (SP) pCO2 34 pO2 179 H* HCO3 14.0 ABG pH 7.240 L* ABG O2 Saturation 99.8 H ABG Base Excess -12.0 ABG Deoxyhemoglobin 0.2 Oxyhemoglobin % 97.4 Carboxyhemoglobin % 0.2 L Methemoglobin % Sat 2.3 H Calc Total Hemoglobin 8.0 L Sodium Potassium Chloride Carbon Dioxide Anion Gap BUN Creatinine BUN/Creatinine Ratio Random Glucose Serum Osmolality Lactic Acid 9.0 H* Calcium Total Bilirubin AST ALT Alkaline Phosphatase Creatine Kinase CK-MB (CK-2) CK-MB (CK-2) % Troponin I B-Natriuretic Peptide Serum Total Protein Albumin Globulin Albumin/Globulin Ratio Patient was in NSR upon arrival. She had good pulses. CXR showed bilateral infiltrates. WBC 13.9. Patient was started on Zosyn and gentamycin for presumed nosocomially acquired pneumonia or possible aspiration pneumonia. Also , given one liter IV NS. Lactic acid was 9.0 so agressive fluids were continued. Calcium gluconate 2 grams IV x one was given for its cardioprotective effect. Patient transferred to [facility] for higher level of care. Departure - Departure Clinical Impression: Cardiac arrest, Pneumonia Disposition: Transfer to Hospital Condition: Serious Departure Forms: ED Discharge - Pt. Copy, Patient Portal Self Enrollment Diet: other - NPO Activity: as per physical therapy Home Medications: Ambulatory Orders Acetaminophen [Tylenol] 650 mg PEG Q4H PRN 02/10/18 Brimonidine 0.2% Ophth [Alphagan P] 1 drop BOTH_EYES BID 02/10/18 Docusate Sodium 100 mg PEG DAILY PRN 02/10/18 Morphine Sulfate 7.5 mg PEG Q6H PRN 02/10/18 Zinc Sulfate 220 mg PEG DAILY 02/10/18 Ascorbic Acid [Vitamin C] 500 mg PEG DAILY 02/21/18 Atropine Sulfate (Ophthalmic) [Atropine Sulfate] 2 - 4 drop SL Q4H PRN 02/21/18 Cholecalciferol [Vitamin D3] 400 unit PEG DAILY 02/21/18 Dextromethorphan-Guaifenesin [Sarah-Tussin Dm] 1 syp PEG BID 02/21/18 Ipratropium [place] Nebs [Atrovent NEBS] 0.5 mg INH Q6H 02/21/18 Linezolid [Zyvox] 600 mg PEG BID 02/21/18 Lorazepam [Ativan] 1 mg PEG BID PRN 02/21/18 Multiple Vitamin [Multivitamins] 1 cap PEG DAILY 02/21/18 Pantoprazole Suspension [Protonix] 40 mg PEG DAILY 02/21/18 Prednisone 10 mg PEG DAILY 02/21/18 QUEtiapine FUMARATE [SEROquel] 100 mg PEG BID 02/21/18
[2018-08-13 16:17] VITALS: O2SAT 100
[2018-08-13] MEDS ORDERED: PIPERACILLIN/TAZOBACTAM 3.375 GM in SODIUM CHLORIDE 0.9% 100ML 100 ML IVPB ONE (16:43)
[2018-08-13] MEDS ORDERED: PIPERACILLIN/TAZOBACTAM 3.375 GM VIAL IVPB ONE (16:52)
[2018-08-13] MEDS ORDERED: SODIUM CHLORIDE 0.9% 100ML 100 ML IVPB ONE (16:53)
[2018-08-13] MEDS ORDERED: [UNRECOGNIZED DRUG - OTHER] IVPB SCH (17:00)
[2018-08-13] MEDS ORDERED: GENTAMICIN IVPB SCH (17:00)
[2018-08-13] MEDS ORDERED: GENTAMICIN SULFATE INJ 80 MG/2 ML VIAL IM ONE (17:07)
[2018-08-13 18:55] VITALS: BP 178/82
== END 2018-08-13 18:50 | disposition short-term general hospital (02) ==
LOC: ER 14:45
DX: I46.9 Cardiac arrest, cause unspecified (principal); J18.9 Pneumonia, unspecified organism; I25.2 Old myocardial infarction; J44.9 Chronic obstructive pulmonary disease, unspecified; I50.9 Heart failure, unspecified; I11.0 Hypertensive heart disease with heart failure; K21.9 Gastro-esophageal reflux disease without esophagitis; Z99.11 Dependence on respirator [ventilator] status; Z95.0 Presence of cardiac pacemaker; Z79.899 Other long term (current) drug therapy; Z88.8 Allergy status to other drugs, medicaments and biological substances; Z88.1 Allergy status to other antibiotic agents; Z88.6 Allergy status to analgesic agent
CPT/HCPCS: 36415; 36600; 71045; 80053; 81001; 82550; 82553; 82803; 82805; 83605; 83880; 84484; 85025; 85610; 85730; 87040; 87086; 93005; 94002; 94770; J1580; J2543; J7030; J7050